=== PATIENT | male | born 1945 | race Hispanic/Latino ===

== ENCOUNTER 2017-09-02 09:37 | Emergency (ER) | payer MEDICARE ==
--- NOTE | 2017-09-02 10:04 | ED PDOC ---
Arrival/HPI - General Chief Complaint: Male Genitourinary Time Seen by Provider: 09/02/17 09:43 Historian: Patient - History of Present Illness Narrative History of Present Illness (Text): 09/02/17 09:54 A 72 year old male presents to the emergency department complaining of urinary retention since this morning. Patient reports also experiencing constipation as well. Patient denies any fever, chills, or any other complaints at this time. PMD: Dr. Diaz Urologist: Dr. Trimble Past Medical History - Provider Review Nursing Documentation Reviewed: Yes - Infectious Disease Hx of Infectious Diseases: None - Cardiac Hx Cardiac Disorders: No - Pulmonary Hx Respiratory Disorders: No - HEENT Hx HEENT Disorder: No - Gastrointestinal Hx Gastrointestinal Disorders: No - Genitourinary/Gynecological Hx Genitourinary Disorders: No - Psychiatric Hx Substance Use: No - Surgical History Hx Orthopedic Surgery: Yes Family/Social History - Physician Review Nursing Documentation Reviewed: Yes Family/Social History: No Known Family HX Smoking Status: Unknown If Ever Smoked Hx Alcohol Use: Yes Frequency of alcohol use: Socially Hx Substance Use: No Allergies/Home Meds Allergies/Adverse Reactions: Allergies No Known Allergies Allergy (Verified 09/02/17 09:55) Review of Systems - Physician Review All systems were reviewed & negative as marked: Yes - Review of Systems Constitutional: absent: Fevers Gastrointestinal: Constipation Genitourinary Male: Urinary Output Changes (urinary retention) Physical Exam - Physical Exam Narrative Physical Exam (Text): Constitutional: No acute distress. Head: Normocephalic. Atraumatic. Eyes: PERRL. ENT: Moist mucous membranes. Neck: Supple. Cardiovascular: Regular rate. Chest: No tenderness. Respiratory: Clear to auscultation bilaterally. GI: Mild suprapubic tenderness. Nondistended. Back: No CVA tenderness. Musculoskeletal: No tenderness or swelling of extremities. Skin: No rash. Neurologic: Alert, no focal deficit. Vital Signs Reviewed: Yes Vital Signs Temp Pulse Resp BP Pulse Ox 09/02/17 13:49 75 19 135/73 98 09/02/17 12:35 68 19 151/82 H 100 09/02/17 10:38 62 100 09/02/17 09:51 97.5 F L 74 18 121/71 98 Temperature: Afebrile Blood Pressure: Normal Pulse: Regular Respiratory Rate: Normal Appearance: Positive for: Well-Appearing, Non-Toxic, Comfortable Pain Distress: None Mental Status: Positive for: Alert and Oriented X 3 Medical Decision Making ED Course and Treatment: 09/02/17 09:57 Impression: 72 year old male with urinary retention. Physical exam shows mild suprapubic tenderness. Plan: -- Abd/Pelvis CT -- Urinalysis -- Labs -- Urine Culture -- Urinary Catheter Placement -- Reassess and disposition Progress Notes: 09/02/2017 11:41 Abd/Pelvis CT IMPRESSION: Distended urinary bladder. Move associated midline bladder diverticulum. White catheter balloon distended in the intra prostatic urethra. Additional benign and/or incidental findings described above. Dictator: Emile Martinez MD - Lab Interpretations Lab Results: 09/02/17 10:21 09/02/17 10:21 Lab Results 09/02/17 10:21: Sodium 141, Potassium 4.1, Chloride 104, Carbon Dioxide 23, Anion Gap 18, BUN 23 H, Creatinine 0.9, Est GFR ( Amer) > 60, Est GFR ( Non-Af Amer) > 60, Random Glucose 118 H, Calcium 10.0, Total Bilirubin 0.5, AST 39, ALT 42, Alkaline Phosphatase 74, Total Protein 7.5, Albumin 4.4, Globulin 3.1, Albumin/Globulin Ratio 1.4 09/02/17 10:21: WBC 6.8, RBC 4.40, Hgb 13.9 L, Hct 39.7 L, MCV 90.2, MCH 31.6, MCHC 35.0, RDW 12.2, Plt Count 295, MPV 9.0, Gran % 63.7, Lymph % (Auto) 27.5, [place] % (Auto) 6.8 H, Eos % (Auto) 1.6, Baso % (Auto) 0.4, Gran # 4.33, Lymph # ( Auto) 1.9, [place] # (Auto) 0.5, Eos # (Auto) 0.1, Baso # (Auto) 0.03 09/02/17 10:00: Urine Color Yellow, Urine Appearance Clear, Urine pH 6.5, Ur Specific [place] 1.010, Urine Protein Negative, Urine Glucose (UA) Negative, Urine Ketones Negative, Urine Blood Large H, Urine Nitrate Negative, Urine Bilirubin Negative, Urine Urobilinogen 0.2, Ur Leukocyte Esterase Negative, Urine RBC 1 - 3, Urine WBC Negative, Ur Epithelial Cells None I have reviewed the lab results: Yes - RAD Interpretation Radiology Orders: 09/02/17 10:40 ABD & PELVIS IV CONTRAST ONLY [CT] Stat - Medication Orders Current Medication Orders: Discontinued Medications Ketorolac Tromethamine (Toradol) 30 mg IVP STAT STA Stop: 09/02/17 11:31 Last Admin: 09/02/17 11:46 Dose: 30 mg Morphine Sulfate (Morphine) 4 mg IVP STAT STA Stop: 09/02/17 10:29 Last Admin: 09/02/17 10:31 Dose: 4 mg Morphine Sulfate (Morphine) 4 mg IVP STAT STA Stop: 09/02/17 10:33 Last Admin: 09/02/17 10:50 Dose: - Scribe Statement The provider has reviewed the documentation as recorded by the Alan Deshpande Provider Scribe Attestation: All medical record entries made by the Scribe were at my direction and personally dictated by me. I have reviewed the chart and agree that the record accurately reflects my personal performance of the history, physical exam, medical decision making, and the department course for this patient. I have also personally directed, reviewed, and agree with the discharge instructions and disposition. Disposition/Present on Arrival - Present on Arrival Any Indicators Present on Arrival: No History of DVT/PE: No History of Uncontrolled Diabetes: No Urinary Catheter: No History of Decub. Ulcer: No History Surgical Site Infection Following: None - Disposition Have Diagnosis and Disposition been Completed?: Yes Diagnosis: Urinary retention Disposition: HOME/ ROUTINE Disposition Time: 11:49 Patient Plan: Discharge Condition: STABLE Discharge Instructions (ExitCare): Urinary Retention Prescriptions: Ciprofloxacin [Cipro] 500 mg PO BID #14 tab Magnesium Citrate [Citrate of Mag] 300 ml PO ONCE #1 bottle Tamsulosin [Flomax] 0.4 mg PO DAILY #10 cap Referrals: Jose Eduardo Trimble MD [Staff Provider] - Follow up with primary Forms: [employer] ([place])
[2017-09-02] MEDS ORDERED: Morphine 5 MG/ML SYRINGE IVP STA (10:28)
[2017-09-02] MEDS ORDERED: Morphine 4 mg/ml ISec ONE (10:31)
[2017-09-02] MEDS ORDERED: Morphine 4 mg/ml ISec IVP STA (10:32)
[2017-09-02 10:39] LABS: ALB/GLOB RATIO 1.4 (1.1-1.8); ALBUMIN 4.4 g/dL (3.0-4.8); ALT/SGPT 42 U/L (7-56); AST/SGOT 39 U/L (17-59); BLOOD UREA NITROGEN 23 mg/dL (7-21); GFR AFRICAN-AMERICAN > 60; GFR NON-AFRICAN AMERICAN > 60
[2017-09-02] MEDS ORDERED: Iohexol 350 MG/100 ML VIAL ONE (10:52)
[2017-09-02 11:09] LABS: BASO # 0.03 K/mm3 (0.0-2.0); BASO % 0.4 % (0.0-3.0); EOS # 0.1 (0.0-0.7); EOS % 1.6 % (1.5-5.0); GRAN # 4.33 (1.4-6.5); GRAN % 63.7 % (50.0-68.0); HEMOGLOBIN 13.9 g/dL (14.0-18.0); LYMPH # 1.9 (1.2-3.4); LYMPH % 27.5 % (22.0-35.0); MEAN CELL VOLUME 90.2 fl (80.0-105.0); MEAN CORPUSCULAR HEMOGLOBIN 31.6 pg (25.0-35.0); MONO # 0.5 (0.1-0.6); MONO % 6.8 % (1.0-6.0); RBC 4.4 10^6/uL (3.5-6.1); RED CELL DISTRIBUTION WIDTH 12.2 % (11.5-14.5); WHITE BLOOD COUNT 6.8 10^3/ul (4.5-11.0)
[2017-09-02 11:18] LABS: PH,URINE 6.5 (4.7-8.0); URINE BILIRUBIN NEGATIVE (NEGATIVE); URINE BLOOD LARGE (NEGATIVE); URINE GLUCOSE (UA) NEGATIVE (NEGATIVE); URINE LEUKOCYTE ESTERASE NEGATIVE Leu/uL (NEGATIVE); URINE PROTEIN NEGATIVE mg/dL (<30 mg/dL); URINE UROBILINOGEN 0.2 E.U./dL (<1 E.U./dL)
[2017-09-02 11:19] LABS: URINE APPEARANCE CLEAR (CLEAR); URINE COLOR YELLOW (YELLOW)
[2017-09-02 11:25] LABS: URINE WBC NEGATIVE /hpf (0-6)
--- NOTE | 2017-09-02 11:42 | CT ---
PROCEDURE: CT Abdomen and Pelvis with contrast HISTORY: lower abdominal pain COMPARISON: None. TECHNIQUE: Contrast dose: 100 cc Omnipaque 350. Radiation dose: Total exam DLP = 1115.59 mGy-cm. This CT exam was performed using one or more of the following dose reduction techniques: Automated exposure control, adjustment of the mA and/or kV according to patient size, and/or use of iterative reconstruction technique. FINDINGS: LOWER THORAX: Unremarkable. LIVER: Unremarkable. No gross lesion or ductal dilatation. GALLBLADDER AND BILE DUCTS: Unremarkable. PANCREAS: Unremarkable. No gross lesion or ductal dilatation. SPLEEN: Unremarkable. ADRENALS: Unremarkable. No mass. KIDNEYS AND URETERS: Unremarkable. No hydronephrosis. No solid mass. VASCULATURE: Unremarkable. No aortic aneurysm. BOWEL: Diverticulosis without an acute inflammatory component or other associated pathologic process. APPENDIX: Normal appendix. PERITONEUM: Unremarkable. No free fluid. No free air. LYMPH NODES: Unremarkable. No enlarged lymph nodes. BLADDER: Distended urinary bladder. Urinary bladder 11 x 13 x 16 cm. Midline anterior bladder diverticulum. Although the wall of the bladder is not thickened there are nova vesicle inflammatory changes. Mild cystitis can produce these findings. REPRODUCTIVE: Markedly enlarged prostate 6.3 x 6.7 cm. BONES: No acute fracture. OTHER FINDINGS: White catheter is distended in the intra prostatic urethra. . IMPRESSION: Distended urinary bladder. Move associated midline bladder diverticulum. White catheter balloon distended in the intra prostatic urethra. I communicated these results to the attending physician in the emergency department 11:39. . Additional benign and/or incidental findings described above.
[2017-09-02 12:37] VITALS: RESP 19
[2017-09-02 14:12] VITALS: PULSE 79; TEMP 98
[2017-09-02 14:14] VITALS: BP 130/61; O2SAT 100
== END 2017-09-02 14:12 | disposition home or self-care (01) ==
LOC: MERGE 09:37 → ED 09:37
DX: R33.9 Retention of urine, unspecified (principal)
CPT/HCPCS: 74177; 80053; 81001; 85025; 87086; 99285; J1885; J2270; Q9967

== ENCOUNTER 2018-05-18 12:55 | Outpatient (CLI) | payer MEDICARE | END 2018-05-18 12:56 | disposition home or self-care (01) | LOC: RAD 12:55 ==